=== PATIENT | male | born 1960 | race Caucasian/White ===

== ENCOUNTER 2020-08-24 16:27 | Emergency (ER) | payer MEDICAID ==
[~2020-08-24] VITALS: Ht 172.7 cm; Wt 73.0 kg
[2020-08-24 23:30] VITALS: BP 125/59
== END 2020-08-24 23:30 | disposition home or self-care (01) ==
LOC: ER 16:27
DX: F10.129 Alcohol abuse with intoxication, unspecified (principal); Y90.9 Presence of alcohol in blood, level not specified; Z98.890 Other specified postprocedural states
CPT/HCPCS: 99283